=== PATIENT | male | born 1990 | race Caucasian/White ===

== ENCOUNTER 2020-07-07 08:51 | Emergency (ER) | payer OTHER, SELFPAY ==
[2020-07-07 09:02] VITALS: BP 139/90; PULSE 109; TEMP 36.8; O2SAT 98
[2020-07-07 09:23] LABS: Bilirubin Negative (Negative); Blood Negative (Negative); Clarity Clear (Clear); Glucose Negative (Negative); Ketones Negative (Negative); Leukocyte Esterase Negative (Negative); Nitrite Negative (Negative); Urobilinogen 0.2 EU/dL (Up TO 0.2); pH 6.5 (5-8)
--- NOTE | 2020-07-07 09:27 | NUR.NOTE ---
This person is sitting 1:1. Patient is meeting with doctor. Appears to be calm. is present with him, providing support and comfort.
[2020-07-07 09:39] LABS: *AMPHETAMINES SCREEN URINE Negative (Negative); *BARBITURATES SCREEN URINE Negative (Negative); *BENZODIAZEPINES SCREEN URINE Negative (Negative); Cannabinoids THC Positive (Negative); Cocaine Screen,Urine Negative (Negative); METHADONE URINE SCREEN Negative (Negative); OPIATES URINE SCREEN Negative (Negative)
[2020-07-07 09:40] LABS: Tricyclic Antidepressants Negative (Negative)
[2020-07-07 10:48] LABS: Abs Immature Grans 0.02 10^3/uL (0.0-0.06); Absolute Basophil Count 0.02 10^3/uL (0.0-0.2); Absolute Eosinophil Count 0.04 10^3/uL (0.0-0.7); Absolute Lymphocyte Count 1.91 10^3/uL (1.2-3.4); Absolute Monocyte Count 0.54 10^3/uL (0.1-0.8); Basophils % 0.3; Eosinophils % 0.5; HCT 48.1 % (40.0-50.0); HGB 16.7 g/dL (13.5-17.5); Immature Grans % 0.3; Lymphocytes % 25.4; MCH 33.2 pg (27.0-33.0); MCHC 34.7 % (32.0-36.0); MCV 95.6 fL (80-95); MPV 9.4 fL (8.0-11.0); Monocytes % 7.2; Neutrophils % 66.3; Nucleated RBC 0 %; Platelet Count 205 10^3/uL (130-400); RBC 5.03 10^6/uL (4.36-5.78); RDW 11.6 % (11.8-14.1); RDW-SD 40.8 fL; WBC 7.53 10^3/uL (4.4-10.8)
--- NOTE | 2020-07-07 11:04 | W.ED.GENAD ---
Discharge Plan Disposition Patient Disposition: HOME Condition: Good Discharge Details Clinical Impression: Depression, Insomnia Primary Care Provider: Unknown,Unknown ED Provider: Joe Marie Home Meds and New Rx's Prescriptions: No Action No Known Home Meds RF: 0 Discharge Instructions Instructions: Lorazepam (By mouth), Depression (ED) Additional Instructions: At this time you are stable for discharge. Please follow-up closely with the services that you have discussed with your mental health Associates. When you get home please take the Ativan that you have been given as well as a 25 mg Benadryl do your best to get some sleep and rest in a cool dark room. If you notice any worsening of your symptoms, or any new symptoms such as vomiting, diarrhea, fever, chills, shortness of breath, chest pain, numbness, weakness, or fainting , please return immediately to the emergency department for reevaluation. Please follow up with your primary care provider as soon as possible for reassessment and reevaluation. As always, it was a pleasure participating in your medical care today. Medical Decision Making 29-year-old male with no significant past medical history who presents today for evaluation of depression and insomnia. Patient states that he has not been sleeping for the last 3 days at all, his mind seems to race, he states that over the last day or so he has heard occasional voices which tell him that perhaps he should end his life. He has no particular plan though. He does state that he occasionally hears music that is not there as well. He denies any homicidal ideation. His is at bedside. He denies any previous history of schizophrenia, suicidal ideations or significant depression. He does note that his brother a year ago secondary to a mental health crisis and he does feel that this is been weighing on him. He has not seen anyone for counseling or help on an outpatient basis otherwise. He denies any IV or illicit drug use. No other complaints at this time. Physical exam is notably unremarkable, screening work-up is unremarkable aside for slightly elevated potassium. Patient is asymptomatic. No indication for emergent treatment at this time. Mental health has seen and assessed the patient, they feel that he is stable for discharge as well. They will set up resources for him on an outpatient basis. I do feel that at this stage the patient has support as needed for continued outpatient management. We will give a single Ativan pill to be taken at home to help sleep, in conjunction with Benadryl and melatonin. Discussed the importance of close follow-up. Discussed red flags which return. I have extensively reviewed the treatment plan and discharge instructions with the patient and their family. I have addressed all patient concerns at this time. The patient and family was made aware of what symptoms to monitor for that would warrant a return to the emergency department. Discussed the plan with the patient and family, they demonstrate verbal understanding and agreement with our assessment and plan at this time. The documentation in this chart was dictated using [employer] dictation software. Please excuse any dictation errors. HPI General Date/Time Provider Initiated Documentation: 07/07/20 09:11. HPI Narrative: 29-year-old male with no significant past medical history who presents today for evaluation of depression and insomnia. Patient states that he has not been sleeping for the last 3 days at all, his mind seems to race, he states that over the last day or so he has heard occasional voices which tell him that perhaps he should end his life. He has no particular plan though. He does state that he occasionally hears music that is not there as well. He denies any homicidal ideation. His is at bedside. He denies any previous history of schizophrenia, suicidal ideations or significant depression. He does note that his brother a year ago secondary to a mental health crisis and he does feel that this is been weighing on him. He has not seen anyone for counseling or help on an outpatient basis otherwise. He denies any IV or illicit drug use. No other complaints at this time. Related Data Home Medications Medication Instructions Recorded Confirmed Unknown [No Known Home Meds] 07/07/20 07/07/20 Allergies Allergy/AdvReac Type Severity Reaction Status Date / Time No Known Allergies Allergy Unverified 07/07/20 09:10 General Stated Complaint: PsychEval DEBBI: 2 Review of Systems All systems reviewed & are unremarkable except as noted in HPI and below [facility] Social History Smoking/Tobacco Use Status: Current every day Tobacco Type: cigarettes Smoking risk assessment performed?: Yes Alcohol Intake: former Drug use: Daily Substance use type: marijuana Do you feel safe at home: Yes Do you feel safe in your relationship?: Yes Exam Narrative Exam Narrative: 1.Const: Well-nourished, Well-developed, appearing stated age 2.Eyes: PERRL, no conjunctival injection, and symmetrical lids. 3.ENT: Atraumatic external nose and ears. Moist MM. Neck: Symmetric, trachea midline, No thyromegaly. 4.CVS: +S1/S2, No murmurs or gallops. Peripheral pulses 2+ and equal in all extremities. Brisk capillary refill in all extremities. 5.RESP: Unlabored respiratory effort. Clear to auscultation bilaterally. No wheezes rales or rhonchi 6.GI: Soft, Nontender/Nondistended, No hepatosplenomegaly. No guarding or rebound. 7.MSK: Normocephalic/Atraumatic, Extremities w/o deformity or ttp No cyanosis or clubbing, Normal movement of all extremities 8.Skin: Warm, Dry. No rashes or lesions. 9.Neuro: certified medical asst II-XII grossly intact. Sensation grossly intact, no focal neurologic deficits. 10.Psych: (AAO) x3. Appropriate mood and affect Course Vital Signs Vital signs: Vital Signs Temperature 36.8 C 07/07/20 09:02 Pulse 109 H 07/07/20 09:02 Blood Pressure 139/90 07/07/20 09:02 Pulse Oximetry 98 07/07/20 09:02 Temperature 36.8 C 07/07/20 09:02 Temperature Source Temporal Artery Scan 07/07/20 09:02 Pulse 109 H 07/07/20 09:02 Respiratory Effort Non-Labored 07/07/20 09:09 Blood Pressure 139/90 07/07/20 09:02 Blood Pressure Position Sitting 07/07/20 09:02 Pulse Oximetry 98 07/07/20 09:02 Oxygen Delivery Method Room Air 07/07/20 09:02 Oxygen Flow Rate 0 07/07/20 09:02 Pain Level 0 07/07/20 09:02 Lab/Test Results Lab/Test Results: Laboratory Tests Range/Units 07/07/20 07/07/20 07/07/20 09:15 09:15 10:34 WBC (4.4-10.8) 10^3/uL 7.53 RBC (4.36-5.78) 10^6/uL 5.03 Hgb (13.5-17.5) g/dL 16.7 Hct (40.0-50.0) % 48.1 MCV (80-95) fL 95.6 H MCH (27.0-33.0) pg 33.2 H MCHC (32.0-36.0) % 34.7 RDW (11.8-14.1) % 11.6 L Plt Count (130-400) 10^3/uL 205 MPV (8.0-11.0) fL 9.4 Immature Gran % 0.3 Neutrophils % 66.3 Lymphocytes % 25.4 Monocytes % 7.2 Eosinophils % 0.5 Basophils % 0.3 Nucleated RBC % % 0 Absolute Neutrophils (1.2-6.7) 10^3/uL 5.00 Absolute Lymphocytes (1.2-3.4) 10^3/uL 1.91 Absolute Monocytes (0.1-0.8) 10^3/uL 0.54 Absolute Eosinophils (0.0-0.7) 10^3/uL 0.04 Absolute Basophils (0.0-0.2) 10^3/uL 0.02 Urine Color (Yellow) Yellow Urine Clarity (Clear) Clear Urine pH (5-8) 6.5 Ur Specific [place] (1.005-1.025) 1.010 Urine Protein (Negative) mg/dL Negative Urine Ketones (Negative) mg/dL Negative Urine Blood (Negative) Negative Urine Nitrite (Negative) Negative Urine Bilirubin (Negative) Negative Urine Urobilinogen (Up TO 0.2) EU/dL 0.2 Ur Leukocyte Esterase (Negative) Negative Urine Glucose (Negative) mg/dL Negative Urine Opiates Screen (Negative) Negative Urine Methadone Screen (Negative) Negative Ur Barbiturates Screen (Negative) Negative Ur Tricyclics Screen (Negative) Negative Ur Amphetamines Screen (Negative) Negative U Benzodiazepines Scrn (Negative) Negative Urine Cocaine Screen (Negative) Negative Ur THC Screen (Negative) Positive A
[2020-07-07 11:12] LABS: ALT 36 U/L (16-63); AST 19 U/L (15-37); Albumin 4.5 g/dL (3.4-5.0); Alkaline Phosphatase 55 U/L (46-116); Anion Gap 8.8 mmol/L (3-11); BUN 13 mg/dL (7-18); Bilirubin, Total 0.7 mg/dL (0.2-1.0); CO2 30.2 mmol/L (21.0-32.0); CREATININE 0.9 mg/dL (0.70-1.30); Calcium 9.5 mg/dL (8.5-10.1); Chloride 103 mmol/L (98-107); ETHANOL BLOOD 4.6 mg/dL (<3); Glucose 99 mg/dL (74-106); Potassium 5.3 mmol/L (3.5-5.1); Salicylate 3.4 mg/dL (<2.8); Sodium 142 mmol/L (136-145); TSH 1.25 uIU/mL (0.36-3.74); Total Protein 8.1 g/dL (6.4-8.2)
[2020-07-07 11:13] LABS: Acetaminophen < 2 ug/mL (10-30)
[2020-07-07] MEDS: LORazepam 1 MG TAB PO (11:16)
--- NOTE | 2020-07-07 11:23 | PDOC.MHCN ---
Date of service: 07/07/20 Time of Service: 11:00 Mental Health Crisis Note Presenting Issue How did you arrive at the ED and why did you come: Client is brought to the ED by his . Client reports that he has been unable to sleep for the past 4 days. He has had an increase in anxiety and depressive episodes over the past few weeks. Precipitating Factors Client reports SI thoughts but no intention of acting on them. At times, client reports he is having auditory hallucinations over the past few days. Disposition BEHAVIOR: Client is polite an receptive when speaking with this service writer advisor. EYE CONTACT: Client makes eye contact throughout the assessment. MOOD: Client is depressed and feeling anxious. AFFECT: Clients affect is normal. APPETITE: Client reports a poor appetite. SLEEP(trouble falling/staying asleep: Client reports that he has not slept for 4 days. Plan This service writer advisor spoke with Dr. Marie. Client will go home with ativan and benadryl to help him sleep and ease his anxiety. Clients will be with him at home.Client has an upcoming appointment with his PCP, Santino Cohn on July 12. This service writer advisor did [facility] intake paperwork with client. Client is open to receiving services through [facility]. [facility] will contact client tomorrow and will check in on how he is doing. This service writer advisor wrote down the [facility] Emergency number for client to use if additional supports are needed. Signature Clinician's Name/Title: Yenny Kennedy [facility] Emergency Clinician
== END 2020-07-07 11:24 | disposition home or self-care (01) ==
PROVIDERS: Emergency Provider Student in an Organized Health Care Education/Training Program
DX: F32.9 Major depressive disorder, single episode, unspecified (principal); G47.00 Insomnia, unspecified
CPT/HCPCS: 36415; 80053; 80307; 99283; 80320; 80329; 81003; 84443; 85025

== ENCOUNTER 2020-07-08 01:36 | Emergency (ER) | payer OTHER, SELFPAY ==
[2020-07-08 01:42] VITALS: BP 125/78; PULSE 139; RESP 28; O2SAT 96
--- NOTE | 2020-07-08 01:43 | W.ED.GENAD ---
Discharge Plan Disposition Patient Disposition: HOME Condition: Stable Discharge Details Clinical Impression: Insomnia Primary Care Provider: Unknown,Unknown ED Provider: Jose Samuels Home Meds and New Rx's Prescriptions: No Action No Known Home Meds RF: 0 Discharge Instructions Additional Instructions: We have provided you with 2 more Ativan to use at night if needed. Please only take 1 if difficulty at night going to sleep. Follow-up with mental health as well as primary care as planned this week. Return to ED for unsafe feelings, mental status changes, other concerns. Referrals: [facility] [Outside] Santino Cohn [ [facility] STAFF PHYSICIAN] - Discharge Data Discharge Date/Time-TO BE ENTERED AT DEPARTURE: 07/08/20 03:03 Medical Decision Making Reviewed patient's previous visit as well as labs. Nothing of significance. Has follow-up with mental health later today as well as new primary care visit later this week. Given the time of presentation do not feel medicating currently for insomnia appropriate. However, agreed to provide patient with two 1 mg doses of Ativan for use at night if needed until follow-up and plan in place. Medical Records Medical records reviewed: Yes I reviewed the patient's medical records. HPI General Mode of arrival: ambulatory. Date/Time Provider Initiated Documentation: 07/08/20 01:43. Limitations to Documentation: no limitations. Information obtained by: patient, RN notes reviewed and old records reviewed. HPI Narrative: Patient returns to ED with complaint of insomnia. Patient had been seen about 12 hours ago with complaint of anxiety and insomnia. Full mental health screening exam and mental health evaluation was done at that time. Patient was given Ativan which he took when he got home and slept for about 5 hours in the afternoon. Subsequently woke up and has had anxiety, racing thoughts, inability to fall back asleep. On questioning, this is not necessarily a new problem. Sounds like he has had intermittent episodes of this throughout his life. He also has episodes of being down and depressed. Is not on medications. Has not had a psychiatric diagnosis ever made. Uses marijuana on a daily basis as his medication. Related Data Home Medications Medication Instructions Recorded Confirmed Unknown [No Known Home Meds] 07/07/20 07/08/20 Allergies Allergy/AdvReac Type Severity Reaction Status Date / Time No Known Allergies Allergy Unverified 07/08/20 01:53 General DEBBI: 2 Review of Systems Constitutional Constitutional: Denies fever(s) Cardiovascular Cardiovascular: Denies dyspnea Respiratory Respiratory: Denies cough and Denies dyspnea Psychiatric Psychiatric: Reports abnormal sleep pattern, Reports anxiety, Denies homicidal ideation and Denies suicidal ideation [facility] Medical History (Updated 07/08/20 @ 02:46 by Jose Samuels MD) Insomnia Social History Smoking/Tobacco Use Status: Current every day Tobacco Type: cigarettes Smoking risk assessment performed?: Yes Alcohol Intake: former Drug use: Daily Substance use type: marijuana Do you feel safe at home: Yes Do you feel safe in your relationship?: Yes Exam Narrative Exam Narrative: Const: WDWN male in NAD. HEENT: NC/AT. Normal facial exam. Neck: Supple. Trachea midline. Lungs: Normal respiratory effort. Neuro: A+O x 3. Normal speech, mentation, gait. Cranial nerves II - XII grossly intact. No gross motor or sensory deficit. Psych: Calm and cooperative. Good eye contact. Normal speech and thought content. No SI.
[2020-07-08 01:46] VITALS: BP 156/90; PULSE 107; RESP 18; TEMP 37; O2SAT 98
[2020-07-08 01:53] VITALS: RESP 16
[2020-07-08] MEDS: LORazepam 1 MG TAB PO (02:55)
== END 2020-07-08 03:03 | disposition home or self-care (01) ==
PROVIDERS: Emergency Provider Emergency Medicine
DX: G47.00 Insomnia, unspecified (principal)
CPT/HCPCS: 99283

== ENCOUNTER 2020-07-08 19:12 | Observation (INO) | payer OTHER, SELFPAY ==
[2020-07-08 19:18] VITALS: BP 159/95; PULSE 100; RESP 14; TEMP 37.1; O2SAT 98
--- NOTE | 2020-07-08 19:24 | PDOC.CMSAFED ---
- If Service Date Differs Date of service: 07/08/20 Time of Service: 19:24 Care Management Safety Plan Status: Voluntary Chief Complaint: Griffin is a 29 year old male who resides with his in [place], [place]. He presents in the ED for the third time since yesterday. He reports insomnia over the last five days, intense anxiety and depression, and says he is hearing voices. CM will respond to ED to assess patient after patient has been medically cleared and assessed by screener. If screener deems patient meets criteria for psychiatric stabilization CM will facilitate interdepartmental huddle with [facility] screener for safety planning considerations and meet with patient to review [facility] policy and safety plan, establish individual wishes for treatment and maintain patient rights. In the interim; please note safety plan below to guide patient care while awaiting further assessment in the ED. SAFETY PLAN: 1. Will remain on suicide precautions and in paper clothes. 2. Will remain in room under direct supervision of one-on-one staff at all times provided by [employer], SARA, MEDICAL IMAGING DIRECTOR building insulation supervisor. 3. May have paper cups, plates, finger foods as well as a cardboard spoon with which to eat meals. 4. Follow [facility] Management of the Admitted Behavioral Health Patient policy. 5. Personal care: Comfort bath system only at this time. 6. Bathroom privileges: with escort in ED. Available in room without limitation on Med/Surg. 6. No personal belongings at this time. 7. No visitors at this time. 8. Phone contact limited to legal contact at this time. 9. Activities: Crayons, coloring books, television and remote if available, and other activities at RN discretion. 10. Due to VOLUNTARY status, if patient wishes to leave [facility], staff will contact [facility] Crisis Screener ([phone]) and On-Call Instructor [employer] ([phone]) as soon as possible. In the event of elopement, notify [facility] Police ([phone]). If deemed appropriate for inpatient psychiatric care, safety plan will be established with patient, and care team, to adhere to patient goals, identify restrictions based on behavioral status, address nutrition, and determine allowed personal belongings, tools for hygiene and personal care. As well plan will determine level of activity including ambulation, level of supervision, visitors, and determine privileges based on level of acuity, behaviors and level of engagement by patient.
--- NOTE | 2020-07-08 19:33 | ED.GENADUL_ITS ---
Discharge Plan Disposition Patient Disposition: [facility] INPATIENT Condition: Stable Discharge Details Chief Complaint: PsychEval Clinical Impression: History of command hallucinations, Depression with suicidal ideation Primary Care Provider: Santino Cohn ED Provider: Joe Marie Home Meds and New Rx's Prescriptions: No Action multivitamin Capsule 1 cap PO DAILY RF: 0 Medical Decision Making This is a 29-year-old male with no significant past medical history who presents today for suicidal ideations, auditory hallucinations and command hallucinations. Patient was seen yesterday, work-up was relatively unremarkable at that time. He had not slept for the past few days, after medical evaluation mental health saw him and patient family in [facility] felt home was appropriate with sleep aids. Patient did go home and slept for 5 hours with Ativan, unfortunately after this is auditory and command hallucinations worsened he is now hearing things that tell him to kill himself, cannot come to the hospital, and to end his life. He has had no issues like this in the past however he does have family members with it. He denies any homicidal ideations. He denies any IV or illicit drug use. No other complaints at this time. No other modifying factors. Physical exam is unremarkable, patient does want help, and does not feel safe going home. Mental health/[facility] has come and evaluated the patient and agrees on the need for admission. Currently no beds available at outlying facilities. Once laboratory work-up returns we will admit the patient for inpatient admission until transfer is allowed to outlying facility. 8:53 PM Laboratory work-up is unremarkable, patient stable here in the ED. Patient medically cleared. Patient will be admitted while awaiting transfer to outside mental health facility. Patient still here voluntarily. If patient does try to leave he will require EE secondary to his concerning history, however both he and his are on board with voluntary admission at this time. We will give 7.5 mg of Zyprexa and 1 mg of Ativan all p.o. to help the patient rest. Case was discussed with Dr. Oliva, he agrees with assessment and plan. I have extensively reviewed the treatment plan and discharge instructions with the patient. I have addressed all patient concerns at this time. The patient was made aware of what symptoms to monitor for that would warrant a return to the emergency department. Discussed the plan with the patient, they demonstrate verbal understanding and agreement with our assessment and plan at this time. The documentation in this chart was dictated using [employer] dictation software. Please excuse any dictation errors. HPI General Date/Time Provider Initiated Documentation: 07/08/20 19:13 . HPI Narrative: This is a 29-year-old male with no significant past medical history who presents today for suicidal ideations, auditory hallucinations and command hallucinations. Patient was seen yesterday, work-up was relatively unremarkable at that time. He had not slept for the past few days, after medical evaluation mental health saw him and patient family in mental health felt home was appropriate with sleep aids. Patient did go home and slept for 5 hours with Ativan, unfortunately after this is auditory and command hallucinations worsened he is now hearing things that tell him to kill himself, cannot come to the hospital, and to end his life. He has had no issues like this in the past however he does have family members with it. He denies any homicidal ideations. He denies any IV or illicit drug use. No other complaints at this time. No other modifying factors. Related Data Home Medications Medication Instructions Recorded Confirmed multivitamin 1 cap PO DAILY 07/08/20 07/08/20 Allergies Allergy/AdvReac Type Severity Reaction Status Date / Time No Known Allergies Allergy Unverified 07/08/20 19:22 General Stated Complaint: PsychEval DEBBI: 2 Review of Systems All systems reviewed & are unremarkable except as noted in HPI and below [facility] Medical History Insomnia Social History Smoking/Tobacco Use Status: Current every day Tobacco Type: cigarettes Smoking risk assessment performed?: Yes Alcohol Intake: former Drug use: Daily Substance use type: marijuana Do you feel safe at home: Yes Do you feel safe in your relationship?: Yes Additional Social history: feels like he cannot relax at home -hearing voices. Exam Narrative Exam Narrative: 1.Const: Well-nourished, Well-developed, appearing stated age 2.Eyes: PERRL, no conjunctival injection, and symmetrical lids. 3.ENT: Atraumatic external nose and ears. Moist MM. Neck: Symmetric, trachea midline, No thyromegaly. 4.CVS: +S1/S2, No murmurs or gallops. Peripheral pulses 2+ and equal in all extremities. Brisk capillary refill in all extremities. 5.RESP: Unlabored respiratory effort. Clear to auscultation bilaterally. No wheezes rales or rhonchi 6.GI: Soft, Nontender/Nondistended, No hepatosplenomegaly. No guarding or rebound. 7.MSK: Normocephalic/Atraumatic, Extremities w/o deformity or ttp No cyanosis or clubbing, Normal movement of all extremities 8.Skin: Warm, Dry. No rashes or lesions. 9.Neuro: retail operations specialist II-XII grossly intact. Sensation grossly intact, no focal neurologic deficits. 10.Psych: (AAO) x3. Appropriate mood and affect Course Vital Signs Vital signs: Vital Signs Temperature 37.1 C 07/08/20 19:18 Pulse 100 H 07/08/20 19:18 Respiratory Rate 14 07/08/20 19:18 Blood Pressure 159/95 H 07/08/20 19:18 Pulse Oximetry 98 07/08/20 19:18 Temperature 37.1 C 07/08/20 19:18 Pulse 100 H 07/08/20 19:18 Respiratory Rate 14 07/08/20 19:18 Respiratory Effort Non-Labored 07/08/20 19:23 Blood Pressure 159/95 H 07/08/20 19:18 Blood Pressure Position Sitting 07/08/20 19:18 Pulse Oximetry 98 07/08/20 19:18 Oxygen Delivery Method Room Air 07/08/20 19:18 Oxygen Flow Rate 0 07/08/20 19:18 Pain Level 0 07/08/20 19:18
--- NOTE | 2020-07-08 20:07 | PDOC.MHCN ---
Date of service: 07/08/20 Time of Service: 20:08 Mental Health Crisis Note Presenting Issue How did you arrive at the ED and why did you come: Eloy came to the ER with his . Eloy is complaining about command hallucinations. Precipitating Factors Eloy is getting command hallucinations telling him he needs to . Disposition BEHAVIOR: He is cooperative EYE CONTACT: Eye contact is good MOOD: he's very anxious and fearful AFFECT: Anxious APPETITE: Poor appetite SLEEP(trouble falling/staying asleep: He hasn't been sleeping for over a week. Plan Eloy needs to be hospitalized because he has command hallucinations. Eloy had a younger brother suicided last year.
[2020-07-08 20:09] LABS: BE (Venous) 4 mmol/L (-2-3); HCO3 (Venous) 29 mmol/L (23-28); O2 Sat (Venous) 74 %; TCO2 (Venous) 25 mmol/L (24-29); pCO2 (Venous) 45 mmHg (41-51); pH (Venous) 7.41 (7.31-7.41); pO2 (Venous) 37 mmHg
[2020-07-08 20:11] LABS: Abs Immature Grans 0.02 10^3/uL (0.0-0.06); Absolute Basophil Count 0.03 10^3/uL (0.0-0.2); Absolute Eosinophil Count 0.06 10^3/uL (0.0-0.7); Absolute Lymphocyte Count 2.06 10^3/uL (1.2-3.4); Absolute Monocyte Count 0.62 10^3/uL (0.1-0.8); Absolute Neutrophil Count 7.09 10^3/uL (1.2-6.7); Basophils % 0.3; Eosinophils % 0.6; HCT 45.6 % (40.0-50.0); HGB 15.8 g/dL (13.5-17.5); Immature Grans % 0.2; Lymphocytes % 20.9; MCH 32.9 pg (27.0-33.0); MCHC 34.6 % (32.0-36.0); MPV 9.2 fL (8.0-11.0); Monocytes % 6.3; Neutrophils % 71.7; Nucleated RBC 0 %; Platelet Count 215 10^3/uL (130-400); RDW 11.1 % (11.8-14.1); RDW-SD 39.1 fL; WBC 9.88 10^3/uL (4.4-10.8)
[2020-07-08 20:22] LABS: Ammonia 14 umol/L (11-32)
[2020-07-08 20:37] LABS: ALT 35 U/L (16-63); AST 17 U/L (15-37); Albumin 4.4 g/dL (3.4-5.0); Alkaline Phosphatase 51 U/L (46-116); Anion Gap 8.4 mmol/L (3-11); BUN 15 mg/dL (7-18); Bilirubin, Total 0.6 mg/dL (0.2-1.0); CO2 27.6 mmol/L (21.0-32.0); CREATININE 0.8 mg/dL (0.70-1.30); Calcium 9.4 mg/dL (8.5-10.1); Chloride 104 mmol/L (98-107); Glucose 110 mg/dL (74-106); Potassium 4.3 mmol/L (3.5-5.1); Sodium 140 mmol/L (136-145); TSH (W/Ref FT4) 1.05 uIU/mL (0.36-3.74); Total Protein 7.7 g/dL (6.4-8.2)
[2020-07-08 20:40] LABS: Acetaminophen < 2 ug/mL (10-30)
[2020-07-08 20:46] LABS: ETHANOL BLOOD < 3.0 mg/dL (<3)
[2020-07-08 20:59] LABS: *AMPHETAMINES SCREEN URINE Negative (Negative); *BARBITURATES SCREEN URINE Negative (Negative); *BENZODIAZEPINES SCREEN URINE Negative (Negative); Cannabinoids THC Positive (Negative); Cocaine Screen,Urine Negative (Negative); METHADONE URINE SCREEN Negative (Negative); OPIATES URINE SCREEN Negative (Negative)
[2020-07-08 21:00] LABS: Tricyclic Antidepressants Negative (Negative)
[2020-07-08] MEDS: LORazepam 1 MG TAB PO (21:08)
--- NOTE | 2020-07-08 21:15 | NUR.NOTE ---
Nursing Note: Spouse taking patient cell phone, wallet and ring home.
--- NOTE | 2020-07-08 21:36 | W.PM.HP.N ---
Date of service: 07/08/20 Time of Service: 21:36 Assessment and Plan Assessment and plan (1) Psychosis: Status: Acute Assessment and plan: Psychosis. The h/o periodic mood shifts along with the prolonged insomnia might suggest the possibility of bipolar, with then psychotic features, or this may be simply later onset schizophrenia. Does not appear to be a drug induced psychosis. Will monitor on Zyprexa, with prn Ativan, and await disposition to facility. History of Present Illness History of Present Illness Chief Complaint: psychosis Narrative: 29 male with no prior psychiatric history. 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 Returns for ongoing symptoms. In more detail -- reports he has a history of periodic low moods (no manic spells), and then over the past week has been having issues with paranoid thinking and for past five days insomnia ( states he has not slept at all), and then since that time has been having auditory hallucinations which today evolved into suki command hallucinations to hurt himself. Does smoke pot, no other drugs, but did psychedelics back in college. Given Ativan and just now Zyprexa 7.5 PO. Medical w/u negative, UDS + THC only. Admitted pending bed availability at facility. Review of Systems All systems reviewed & are unremarkable except as noted in HPI and below PFSH Medical History Insomnia Social History Smoking/Tobacco Use Status: Current every day Tobacco Type: cigarettes Smoking risk assessment performed?: Yes Alcohol Intake: former Drug use: Daily Substance use type: marijuana Do you feel safe at home: Yes Do you feel safe in your relationship?: Yes Additional Social history: feels like he cannot relax at home -hearing voices. Meds Allergies and Home Medications Allergies Allergy/AdvReac Type Severity Reaction Status Date / Time No Known Allergies Allergy Unverified 07/08/20 19:22 Home Medications Medication Instructions Recorded Confirmed Type multivitamin 1 cap PO DAILY 07/08/20 07/08/20 History Exam Narrative Exam Narrative: 159/95, 100, 37.1, 14, 98% RA. HEENT atraumatic; neck supple; lungs clear; heart RRR; abdomen soft and NT; extremities w/o edema; neuro Ox3, does not appear to be responding to internal stimuli; moves all 4s Results Labs Result diagrams: 07/08/20 20:03 07/08/20 20:03 Labs: Laboratory Results - last 24 hr 07/08/20 07/08/20 07/08/20 20:03 20:03 20:03 WBC RBC Hgb Hct MCV MCH MCHC RDW Plt Count MPV Immature Gran % Neutrophils % Lymphocytes % Monocytes % Eosinophils % Basophils % Nucleated RBC % Absolute Neutrophils Absolute Lymphocytes Absolute Monocytes Absolute Eosinophils Absolute Basophils VBG pH VBG pCO2 VBG pO2 VBG HCO3 VBG Total CO2 VBG O2 Saturation VBG Base Excess Sodium 140 Potassium 4.3 Chloride 104 Carbon Dioxide 27.6 Anion Gap 8.4 BUN 15 Creatinine 0.8 Estimated GFR/1.73 m2 >= 60.00 Glucose 110 H Calcium 9.4 Total Bilirubin 0.6 AST 17 ALT 35 Alkaline Phosphatase 51 Ammonia 14 Total Protein 7.7 Albumin 4.4 TSH 1.05 Salicylates 3.0 Urine Opiates Screen Urine Methadone Screen Acetaminophen < 2 Ur Barbiturates Screen Ur Tricyclics Screen Ur Amphetamines Screen U Benzodiazepines Scrn Urine Cocaine Screen Ur THC Screen Ethyl Alcohol < 3.0 COVID-19 Source 07/08/20 07/08/20 07/08/20 20:03 20:03 20:25 WBC 9.88 RBC 4.80 Hgb 15.8 Hct 45.6 MCV 95.0 MCH 32.9 MCHC 34.6 RDW 11.1 L Plt Count 215 MPV 9.2 Immature Gran % 0.2 Neutrophils % 71.7 Lymphocytes % 20.9 Monocytes % 6.3 Eosinophils % 0.6 Basophils % 0.3 Nucleated RBC % 0 Absolute Neutrophils 7.09 H Absolute Lymphocytes 2.06 Absolute Monocytes 0.62 Absolute Eosinophils 0.06 Absolute Basophils 0.03 VBG pH 7.41 VBG pCO2 45 VBG pO2 37 VBG HCO3 29 H VBG Total CO2 25 VBG O2 Saturation 74 VBG Base Excess 4 H Sodium Potassium Chloride Carbon Dioxide Anion Gap BUN Creatinine Estimated GFR/1.73 m2 Glucose Calcium Total Bilirubin AST ALT Alkaline Phosphatase Ammonia Total Protein Albumin TSH Salicylates Urine Opiates Screen Negative Urine Methadone Screen Negative Acetaminophen Ur Barbiturates Screen Negative Ur Tricyclics Screen Negative Ur Amphetamines Screen Negative U Benzodiazepines Scrn Negative Urine Cocaine Screen Negative Ur THC Screen Positive A Ethyl Alcohol COVID-19 Source 07/08/20 21:05 WBC RBC Hgb Hct MCV MCH MCHC RDW Plt Count MPV Immature Gran % Neutrophils % Lymphocytes % Monocytes % Eosinophils % Basophils % Nucleated RBC % Absolute Neutrophils Absolute Lymphocytes Absolute Monocytes Absolute Eosinophils Absolute Basophils VBG pH VBG pCO2 VBG pO2 VBG HCO3 VBG Total CO2 VBG O2 Saturation VBG Base Excess Sodium Potassium Chloride Carbon Dioxide Anion Gap BUN Creatinine Estimated GFR/1.73 m2 Glucose Calcium Total Bilirubin AST ALT Alkaline Phosphatase Ammonia Total Protein Albumin TSH Salicylates Urine Opiates Screen Urine Methadone Screen Acetaminophen Ur Barbiturates Screen Ur Tricyclics Screen Ur Amphetamines Screen U Benzodiazepines Scrn Urine Cocaine Screen Ur THC Screen Ethyl Alcohol COVID-19 Source Nasopharyx Last Vital Signs Temp 37.1 C 07/08/20 19:18 Pulse 100 H 07/08/20 19:18 Resp 14 07/08/20 19:18 BP 159/95 H 07/08/20 19:18 Pulse Ox 98 07/08/20 19:18 COVID-19 Screening Have you, or household traveled for leisure in last 14 days?: No Had IN PERSON contact w/suspected or confirmed C-19 person: No
[2020-07-08 22:01] LABS: COVID-19 PCR Negative (Negative)
[2020-07-08 22:43] VITALS: BP 136/76; RESP 16; TEMP 36.1; O2SAT 98
[2020-07-09] MEDS: LORazepam 1 MG TAB PO ×2 (01:03→18:26)
[2020-07-09 08:43] VITALS: BP 131/69; PULSE 64
[2020-07-09 08:44] VITALS: BP 131/69; PULSE 73; RESP 18; TEMP 36.3; O2SAT 97
--- NOTE | 2020-07-09 09:50 | MHPN_ITS ---
Date of service: 07/09/20 Time of Service: 09:51 Mental Health Crisis Note Presenting Issue How did you arrive at the ED and why did you come: Pt came to [facility] last night via his with complaints of SI, command hallucinations and poor sleep and appettie. Precipitating Factors Pt reported he is still having auditory hallucinations. He has SI but not intent or specific plans. He denied HI. There is a family history, his brother, by suicide in January 2020 after allegedly having the same presentation as the Pt. Disposition BEHAVIOR: Pt is cooperative and interacting with the assessment. He is laying in his bed and is obsserved rubbing his hair back on his head. He reports thoughts and feelings that his family is not supportive of him and just want him to leave. EYE CONTACT: Eye contact is good. MOOD: Pt's mood appears depressed and anxious. AFFECT: Affect is flat. APPETITE: Pt is still not eating. SLEEP(trouble falling/staying asleep: Pt reported 3-4 hours of sleep last night and he feels better. Plan Pt is wanting to discharge today. This clinician spoke to his who shared the information about his brother's recent by suicide and presentation at the time and this was enough for this clinician to have concerns to hold the Pt if he was not willing to accept treatment. He is however, therefore Pt will remain on voluntary status and placement in a hospital will be sought. It is this clinicians professional belief that the Pt is not appropriate for a crisis bed at this time. If Pt decides that he wants to leave this clinician fully supports an EE be written due to the risk he presents at this time. Signature Clinician's Name/Title: Annie Reed MS, [facility] Emergency Services Clinician
--- NOTE | 2020-07-09 13:03 | PGE_ITS ---
Date of Service Date of service: 07/09/20 Time of Service: 13:03 Assessment and Plan Assessment and plan (1) Depression with suicidal ideation: Status: Acute Assessment and plan: patient may benefit from combination of antipsychotic and antidepressant. He needs CT of head before he can be completely medically cleared for mental health transfer. (2) Insomnia: Status: Acute Assessment and plan: will treat his depression and put him on hypnotic to help him sleep Qualifiers: Insomnia type: due to other mental disorder Qualified Code(s): F51.05 - Insomnia due to other mental disorder; F99 - Mental disorder, not otherwise specified (3) History of command hallucinations: Status: Acute Assessment and plan: as above. Subjective Subjective Interval history since last seen: 29-year-old male with no past medical history of present with suicidal ideations, auditory hallucinations along with sleep deprivation. He has not been sleeping for the last few days. He had seen mental health provider yesterday and was referred to the emergency department.'s been having auditory hallucinations which he hears voices telling him that he is worthless that he should end his life. He has no definitive plan for killing himself. Says he does not want to kill himself but cannot seem to get these voices out of his head. Work-up in the emergency department was unremarkable and he was cleared medically. He was treated with Zyprexa 7.5 mg and Ativan 1 mg both orally last night. He was admitted by the pipe smoker machine operator last night as there were no mental health beds available at hospitals that have psychiatric services. I reviewed his labs and his CBC, CMP and TSH were all normal. However d/t remote head injury and complaints of headaches and now w/ personality changes, I think that a screening contrast enhanced CT head should be done. Exam Narrative Exam Narrative: Thin young white male alert and oriented x 3; quiet but cooperative, rather flat affect lungs are clear heart RRR, soft sytolic ejection murmur grade 1/6 (benign) Abdomen scaphoid Neuro: no focal deficits, no tremors, not currently hallucinating Objective Last Vital Signs Temp 36.3 C L 07/09/20 08:44 Pulse 73 07/09/20 08:44 Resp 18 07/09/20 08:44 BP 131/69 07/09/20 08:44 Pulse Ox 97 07/09/20 08:44 Laboratory Results - last 24 hr 07/08/20 07/08/20 07/08/20 20:03 20:03 20:03 WBC RBC Hgb Hct MCV MCH MCHC RDW Plt Count MPV Immature Gran % Neutrophils % Lymphocytes % Monocytes % Eosinophils % Basophils % Nucleated RBC % Absolute Neutrophils Absolute Lymphocytes Absolute Monocytes Absolute Eosinophils Absolute Basophils VBG pH VBG pCO2 VBG pO2 VBG HCO3 VBG Total CO2 VBG O2 Saturation VBG Base Excess Sodium 140 Potassium 4.3 Chloride 104 Carbon Dioxide 27.6 Anion Gap 8.4 BUN 15 Creatinine 0.8 Estimated GFR/1.73 m2 >= 60.00 Glucose 110 H Calcium 9.4 Total Bilirubin 0.6 AST 17 ALT 35 Alkaline Phosphatase 51 Ammonia 14 Total Protein 7.7 Albumin 4.4 TSH 1.05 Salicylates 3.0 Urine Opiates Screen Urine Methadone Screen Acetaminophen < 2 Ur Barbiturates Screen Ur Tricyclics Screen Ur Amphetamines Screen U Benzodiazepines Scrn Urine Cocaine Screen Ur THC Screen Ethyl Alcohol < 3.0 COVID-19 Source SARS-CoV-2 (PCR) 07/08/20 07/08/20 07/08/20 20:03 20:03 20:25 WBC 9.88 RBC 4.80 Hgb 15.8 Hct 45.6 MCV 95.0 MCH 32.9 MCHC 34.6 RDW 11.1 L Plt Count 215 MPV 9.2 Immature Gran % 0.2 Neutrophils % 71.7 Lymphocytes % 20.9 Monocytes % 6.3 Eosinophils % 0.6 Basophils % 0.3 Nucleated RBC % 0 Absolute Neutrophils 7.09 H Absolute Lymphocytes 2.06 Absolute Monocytes 0.62 Absolute Eosinophils 0.06 Absolute Basophils 0.03 VBG pH 7.41 VBG pCO2 45 VBG pO2 37 VBG HCO3 29 H VBG Total CO2 25 VBG O2 Saturation 74 VBG Base Excess 4 H Sodium Potassium Chloride Carbon Dioxide Anion Gap BUN Creatinine Estimated GFR/1.73 m2 Glucose Calcium Total Bilirubin AST ALT Alkaline Phosphatase Ammonia Total Protein Albumin TSH Salicylates Urine Opiates Screen Negative Urine Methadone Screen Negative Acetaminophen Ur Barbiturates Screen Negative Ur Tricyclics Screen Negative Ur Amphetamines Screen Negative U Benzodiazepines Scrn Negative Urine Cocaine Screen Negative Ur THC Screen Positive A Ethyl Alcohol COVID-19 Source SARS-CoV-2 (PCR) 07/08/20 21:05 WBC RBC Hgb Hct MCV MCH MCHC RDW Plt Count MPV Immature Gran % Neutrophils % Lymphocytes % Monocytes % Eosinophils % Basophils % Nucleated RBC % Absolute Neutrophils Absolute Lymphocytes Absolute Monocytes Absolute Eosinophils Absolute Basophils VBG pH VBG pCO2 VBG pO2 VBG HCO3 VBG Total CO2 VBG O2 Saturation VBG Base Excess Sodium Potassium Chloride Carbon Dioxide Anion Gap BUN Creatinine Estimated GFR/1.73 m2 Glucose Calcium Total Bilirubin AST ALT Alkaline Phosphatase Ammonia Total Protein Albumin TSH Salicylates Urine Opiates Screen Urine Methadone Screen Acetaminophen Ur Barbiturates Screen Ur Tricyclics Screen Ur Amphetamines Screen U Benzodiazepines Scrn Urine Cocaine Screen Ur THC Screen Ethyl Alcohol COVID-19 Source Nasopharyx SARS-CoV-2 (PCR) Negative
--- NOTE | 2020-07-09 14:00 | DI.CT_ITS ---
EXAM: CT HEAD WO/W CLINICAL HISTORY: headaches; auditory hallucinations. TECHNIQUE: Imaging Protocol: Axial computed tomography images with coronal and sagittal reformatted images were created and reviewed. CONTRAST MATERIAL: Intravenous: Omnipaque 350 Contrast volume:100 mL COMPARISON: No exams were available for comparison FINDINGS: Ventricles and Extra axial spaces: Normal in size and morphology for the patient's age. Hemorrhage: None. Cerebral parenchyma: Normal. Enhancement: No suspicious enhancement. [place]: Unremarkable. Midline shift: None. Brainstem/Cerebellum: Normal. Calvarium: Normal. Visualized Paranasal sinuses/Mastoids: Clear. IMPRESSION: Unremarkable CT of the brain. RADIATION DOSE DELIVERED: 1,399.14mGy.cm Total DLP 1,399.14mGy.cm Total DLP DATA REPOSITORY: All CT scans at this facility are submitted to the National Radiology Data Registry (NRDR) Dose Index Registry (DIR) with the [employer] (ACR). RADIATION OPTIMIZATION: All CT scans at this facility use at least one of these dose optimization te chniques: automated exposure control; mA and/or kV adjustment per patient size (includes targeted exa ms where dose is matched to clinical indication); or iterative reconstruction.
[2020-07-09] MEDS: Normal Saline - Diluent 50 ML VIAL IV (14:45)
[2020-07-09] MEDS: OLANZapine 5 MG TAB PO (16:18)
[2020-07-09] MEDS: Sertraline 50 MG TAB PO (16:19)
--- NOTE | 2020-07-09 17:35 | PDOC.CMPRO ---
- If Service Date Differs Date of service: 07/09/20 Time of Service: 17:35 Care Management Progress Note S/O:Griffin was admitted last night with intense anxiety and depression, verbalizing suicidal thoughts. He had presented to the ED 3 times within 2 days with similar complaints. He had been seen by crisis and a safety plan was put in place but he returned within hours. Griffin had not slept in 5 days and was experiencing loss of appetite and demand hallucinations. This morning Griffin verbalized that he wanted to leave the hospital. After discussions with Gianfranco, Griffin' , the [facility] appliance service representative informed Griffin that if he did not agree to seek hospitalization voluntarily, she would seek an emergency evaluation (EE). He agreed to stay voluntarily. This afternoon Gianfranco came to visit with Griffin. ELSI met with her and she shared her concerns for Griffin' safety , particularly in light of the fact that his brother committed suicide in January of 2020. Per Gianfranco, Griffin has had hallucinations (voices) for some time but that in the past few weeks his symptoms have escalated. During Gianfranco's visit with Griffin, he repeatedly asked her to take him come home and when she did not agree, stated that he would leave anyway and walk home. Crisis was called, Griffin was re-evaluated and a physicians certificate was completed. Griffin is currently in Involuntary status. P: Referrals have been sent for involuntary psychiatric hospitalization for Griffin.
--- NOTE | 2020-07-09 18:10 | PDOC.CMSAFE ---
- If Service Date Differs Date of service: 07/09/20 Time of Service: 18:10 Care Management Safety Plan Status: Involuntary Safety plan was revised and changed to Involuntary status following the completion of a physician's certificate emergency exam (EE) at 16:48 pm. Safety plan has been established to meet the needs of the patient, and consideration of the care team, to adhere to patient goals, identify restrictions based on behavioral status, address nutrition, and determine allowed personal belongings, tools for hygiene and personal care. Determine level of activity including ambulation, level of supervision, visitors, and determine privileges based on behaviors and level of engagement by pt. SAFETY PLAN: 1. Will remain on SI/HI precautions. In Paper Clothes 2. Will remain in room under direct supervision of one-on-one staff at all times provided by [employer]; SARA, [employer] box blank machine operator helper. 3. May have paper cups, plates, finger foods as well as a cardboard spoon 4. Follow [facility] Management of the Admitted Behavioral Health Patient policy. 5. Comfort bath system only. 6. No personal belongings 7. Visitors: and parents (if appropriately vaccinated) at nursing's discretion 8. Activities: Crayons, coloring books, word search and puzzle books, television with remote at nursing's discretion. 9. Unlimited bathroom privileges with supervision in room 10. Phone: may make and receive calls from parents and via hospital phone at nursing discretion 11. Due to INVOLUNTARY status, patient is being held at [facility] by the Department of Mental Health ([facility]) until 2nd certification by [facility] Psychiatrist can be performed (within 24 hours). Staff will provide de-escalation support (CPI) as needed. If patient wishes to leave [facility], staff will contact [facility] Crisis Screener ([phone]) and On-Call Kaiako Kohanga Reo ([phone]) as soon as possible. In the event of elopement, notify [place] [employer] ([phone]). Patient is currently involuntarily at [facility]. [facility] Frontline Retail Sales Professional will continue seeking placement. Please contact the Log Brander Kaiako Kohanga Reo ([phone]) for any needed changes to Safety Plan. Safety plan has been provided to interdepartmental care team. Patient will be transported by [facility] at time of discharge.
--- NOTE | 2020-07-09 18:17 | CMSP_ITS ---
- If Service Date Differs Date of service: 07/09/20 Time of Service: 11:45 Care Management Safety Plan Status: Voluntary Chief Complaint: Griffin is a 29 year old male who resides with his in [place], [place]. He was admitted last night with intense anxiety and depression, verbalizing suicidal thoughts. He had presented to the ED 3 times within 2 days with similar complaints. He had been seen by crisis and a safety plan was put in place but he returned within hours. Griffin had not slept in 5 days and was experiencing loss of appetite and demand hallucinations. A safety huddle was held at 11:20 am. In attendance were: Annie [facility] Crisis cl carlton, ELSI Estrella, Marcelina, RN, Lewis, nursing esters and emulsifiers supervisor Safety plan has been established with patient, and care team, to adhere to patient goals, identify restrictions based on behavioral status, address nutrition, and determine allowed personal belongings, tools for hygiene and personal care. Determine level of activity including ambulation, level of supervision, visitors, and determine privileges based on behaviors and level of engagement by pt. SAFETY PLAN: 1. Will remain on SI/HI precautions. In Paper Clothes 2. Will remain in room under direct supervision of one-on-one staff at all times provided by [employer]; SARA, [employer] viscose department worker. 3. May have paper cups, plates, finger foods as well as a cardboard spoon 4. Follow [facility] Management of the Admitted Behavioral Health Patient policy. 5. Comfort bath system only. 6. No personal belongings 7. Visitors: and parents (if appropriately vaccinated) at nursing's discretion 8. Activities: Crayons, coloring books, word search and puzzle books, television with remote at nursing's discretion. 9. Unlimited bathroom privileges with supervision in room 10. Phone: may make and receive calls from parents and via hospital phone at nursing discretion 11. Due to VOLUNTARY status, if patient wishes to leave [facility], staff will contact [facility] Crisis Screener ([phone]) and On-Call [employer] ([phone]) as soon as possible. In the event of elopement, notify [facility] Police ([phone]). If deemed appropriate for inpatient psychiatric care, safety plan will be established with patient, and care team, to adhere to patient goals, identify restrictions based on behavioral status, address nutrition, and determine allowed personal belongings, tools for hygiene and personal care. As well plan will determine level of activity including ambulation, level of supervision, visitors, and determine privileges based on level of acuity, behaviors and level of engagement by patient.
[2020-07-09 18:28] VITALS: BP 140/75; PULSE 80; RESP 20; TEMP 36.4; O2SAT 95
[2020-07-09] MEDS: Zolpidem 6.25 MG TABCR PO (21:21)
[2020-07-10] MEDS: OLANZapine 5 MG TAB PO (08:18)
[2020-07-10] MEDS: Sertraline 50 MG TAB PO (08:18)
--- NOTE | 2020-07-10 10:15 | MHPN_ITS ---
Date of service: 07/10/20 Time of Service: 10:15 Mental Health Crisis Note Presenting Issue How did you arrive at the ED and why did you come: Pt arrived on 07.08.2020ue to an increase in symptoms relating to his mental illness. Precipitating Factors Pt denied SI, HI and auditory hallucinations today. Disposition BEHAVIOR: Pt is able to engage in the conversation but it is minimal and he is minimizing his symptoms. He is denying having any auditory hallucinations at this time. We discussed that he is on EE status and is unable to leave as he asked twice today and what would happen if he did leave. EYE CONTACT: Eye contact is fair. MOOD: Mood appears depressed and overwhlemed. AFFECT: Affect is flat. APPETITE: Pt has not been eating well so this clinician discussed the need for him to eat so he does not have to stay longer than needed. He was offered even just some toast. Pt ended up eating toast and a cheese omelette. SLEEP(trouble falling/staying asleep: Pt reported 3-4 hours of sleep last night but nursing reported more. Plan Pt will remain on EE status. He will be assessed twice daily by [facility] to reevaluate where he is and assess the need for continued involuntary status. No beds available today. Huddle was completed with [facility] team. No changes at this time to the plan. Signature Clinician's Name/Title: Annie Reed MS, [facility] Emergency Services Clinician
[2020-07-10] MEDS: OLANZapine 2.5 MG TAB PO (11:09)
--- NOTE | 2020-07-10 11:13 | W.PM.PROGNOT ---
Date of Service Date of service: 07/10/20 Time of Service: 11:13 Assessment and Plan Assessment and plan (1) Depression with suicidal ideation: Status: Acute Assessment and plan: Continue Zyprexa and sertraline with titration of each. I will start by titrating Zyprexa up to 7.5 mg daily and then wait a couple days then go to 10 mg daily. He was started on sertraline 50 mg daily beginning yesterday we will start titrating it up to 75 mg tomorrow and then to 100 mg the day after. (2) Insomnia: Status: Acute Assessment and plan: will treat his depression and put him on hypnotic to help him sleep. I will keep him on the Ambien CR 6.25 mg nightly. I think getting good quality sleep can be helpful in dealing with his depression. Qualifiers: Insomnia type: due to other mental disorder Qualified Code(s): F51.05 - Insomnia due to other mental disorder; F99 - Mental disorder, not otherwise specified (3) History of command hallucinations: Status: Acute Assessment and plan: as above. Subjective Subjective Interval history since last seen: Patient states he still having racing thoughts and voices. Says it voices or not telling him to kill himself however they are telling him to be better off and that he would be better off . Patient acknowledges that he needs psychiatric help to deal with his mental health issues. He would like to have a counselor to talk with. I explained to him that we are working to try to obtain an inpatient psychiatric beds and he can be transferred to a facility where he can receive both psychiatrist and psychologist to work with him. He is agreeable to the medications and starting tomorrow. Begin him on sertraline 50 mg and Zyprexa 5 mg yesterday. He had a good night sleep last night low-dose Ambien CR. I will titrate the dose of his sertraline to 75 mg starting tomorrow raising Zyprexa to 7.5 mg beginning today. I discussed with him his family situation. He lost a brother to suicide last January. He is still not recovered from that loss. He says it was really hard on his parents are still alive. He has a sister also has depression who has had trouble dealing with the of their brother. Patient himself lives with his who he says is supportive however he feels that he disappoints her in that he has not been able to deal with his depression. Exam Narrative Exam Narrative: Young white male with flat affect who is alert and oriented and answers my questions appropriately. Skin is nondiaphoretic. He is without tremors. He makes good eye contact with me. Objective Last Vital Signs Temp 36.4 C L 07/09/20 18:28 Pulse 80 07/09/20 18:28 Resp 20 07/09/20 18:28 BP 140/75 07/09/20 18:28 Pulse Ox 95 07/09/20 18:28
--- NOTE | 2020-07-10 11:43 | PHA.REVIEW ---
Pharmacy Admission Review - Admission Clinical Review (Last Reviewed 07/08/20 @ 21:43 by Kirt Oliva MD) Psychosis (Acute) Insomnia (Acute) History of command hallucinations (Acute) Depression with suicidal ideation (Acute) No Known Allergies Allergy (Unverified 07/08/20 19:22) Height 6 ft 2 in Weight 91.5 kg - Renal Dosing Renal Dosing: BUN 15 mg/dL (7-18) 07/08/20 20:03 Creatinine 0.8 mg/dL (0.70-1.30) 07/08/20 20:03 Medications needing adjustments: Reviewed (Crcl ~155 mL/min current meds okay) - Anticoagulation Anticoagulation: Hgb 15.8 g/dL (13.5-17.5) 07/08/20 20:03 Hct 45.6 % (40.0-50.0) 07/08/20 20:03 Plt Count 215 10^3/uL (130-400) 07/08/20 20:03 Creatinine 0.8 mg/dL (0.70-1.30) 07/08/20 20:03 DVT Prohphylaxis: N/A - Opiate Usage Evaluate Pain Scale/Pains Meds: N/A - Relevant Labs Sodium 140 mmol/L (136-145) 07/08/20 20:03 Potassium 4.3 mmol/L (3.5-5.1) 07/08/20 20:03 Chloride 104 mmol/L (98-107) 07/08/20 20:03 Electrolytes, C-Reactive P, ESR: Reviewed - DM Control DM Control: Glucose 110 mg/dL (74-106) H 07/08/20 20:03 Insulin Dosing: N/A - Heart Failure/MO EF%, DELIA's, B-Blockers, Diuretics: N/A - BP Control If elevated: Reviewed (No BP yet today but was within normal limits yesterday.) - Qtc Review If Elevated: N/A - IV to PO Switch IV Medications: Reviewed - Home Meds Home Med List reviewed: Reviewed Relevent Home Meds Not ordered & why?: multivitamin - Current meds Current Medication Order Review: Reviewed - Comments Comments/Follow Ups: Continue to watch VS, labs and for med changes.
--- NOTE | 2020-07-10 12:08 | PDOC.CMPRO ---
- If Service Date Differs Date of service: 07/10/20 Time of Service: 12:08 Care Management Progress Note S/O:Griffin was sitting up in bed when CM met with him. He appeared much more alert and engaged than yesterday. Griffin stated that he slept last night and feels that the medications that he has been given are helping him to feel less stressed. He expressed appreciation for the opportunity to speak to the psychiatrist during the second certification last night as well. He shared that he found it helpful and hopes that an inpatient stay in a psychiatric facility may also be beneficial. Gianfranco came to visit Griffin this afternoon and it appeared that the interaction went well. A: Griffin is a 29 year old man admitted on with anxiety, depression and SI P: Referrals have been sent for involuntary psychiatric hospitalization for Griffin.
--- NOTE | 2020-07-10 12:09 | PDOC.CMSAFE ---
- If Service Date Differs Date of service: 07/10/20 Time of Service: 12:09 Care Management Safety Plan Status: Involuntary A safety huddle was held at 10:30 am. Attendance: GEO Valencia, ELSI Estrella Megan RN, Ct, Nursing supervisor lending activities Safety plan has been established to meet the needs of the patient, and consideration of the care team, to adhere to patient goals, identify restrictions based on behavioral status, address nutrition, and determine allowed personal belongings, tools for hygiene and personal care. Determine level of activity including ambulation, level of supervision, visitors, and determine privileges based on behaviors and level of engagement by pt. SAFETY PLAN: 1. Will remain on SI/HI precautions. In Paper Clothes 2. Will remain in room under direct supervision of one-on-one staff at all times provided by [employer]; SARA, MUNDO workers compensation claims assistant. 3. May have paper cups, plates, finger foods as well as a cardboard spoon 4. Follow [facility] Management of the Admitted Behavioral Health Patient policy. 5. Comfort bath system only. 6. No personal belongings 7. Visitors: and parents (if appropriately vaccinated) at nursing's discretion 8. Activities: Crayons, coloring books, word search and puzzle books, television with remote at nursing's discretion. 9. Unlimited bathroom privileges with supervision in room 10. Phone: may make and receive calls from parents and via hospital phone at nursing discretion 11. Due to INVOLUNTARY status, patient is being held at [facility] by the Department of Mental Health ([facility]) until 2nd certification by [facility] Psychiatrist can be performed (within 24 hours). Staff will provide de-escalation support (CPI) as needed. If patient wishes to leave [facility], staff will contact [facility] Crisis Screener ([phone]) and On-Call Flat Spring Assembler ([phone]) as soon as possible. In the event of elopement, notify [place] [employer] ([phone]). Patient is currently involuntarily at [facility]. [facility] Frontline Woodwind Instrument Repairer will continue seeking placement. Please contact the Tile Classifier Flat Spring Assembler ([phone]) for any needed changes to Safety Plan. Safety plan has been provided to interdepartmental care team. Patient will be transported by [facility] at time of discharge. cc:
[2020-07-10 16:00] VITALS: BP 125/76; PULSE 95; RESP 20; TEMP 37; O2SAT 97
[2020-07-10] MEDS: LORazepam 1 MG TAB PO ×2 (16:10→16:29)
[2020-07-10] MEDS: Zolpidem 6.25 MG TABCR PO (21:02)
[2020-07-11] MEDS: Sertraline 50 MG TAB 75 MG PO (08:13)
--- NOTE | 2020-07-11 08:48 | NUR.NOTE ---
Spoke with Annie from [facility], she feels comfortable with the idea that if the patient would like to shower with supervision, he should be able to do so. This automotive service writer anticipates, changes to be made to Behavioral Health plan soon
--- NOTE | 2020-07-11 09:30 | W.PM.PROGNOT ---
Date of Service Date of service: 07/11/20 Time of Service: 09:30 Assessment and Plan Assessment and plan (1) Depression with suicidal ideation: Status: Acute Assessment and plan: cont. titration of his Zyprexa and Sertraline. I will increase his sertraline to 100 mg daily beginning today and his Zyprexa to 10 mg daily beginning tomorrow. (2) Insomnia: Status: Acute Assessment and plan: cont. Ambien CR as this seems to be helping his insomnia. Qualifiers: Insomnia type: due to other mental disorder Qualified Code(s): F51.05 - Insomnia due to other mental disorder; F99 - Mental disorder, not otherwise specified (3) History of command hallucinations: Status: Acute Assessment and plan: as above. Subjective Subjective Interval history since last seen: Patient is doing much better. No SI and no voices just still some racing thoughts but denies any SI. He is more hooeful and wants help w/ his depression and is looking forward to getting counseling. I explained to him that Annie LOYOLA [facility] and there is a chance that he will be transferred today. Exam Narrative Exam Narrative: Patient was napping but awoke easily. He seems calm, forward thinking and positive. No tremors. He makes good eye contact. Objective Last Vital Signs Temp 37.0 C 07/10/20 16:00 Pulse 95 H 07/10/20 16:00 Resp 20 07/10/20 16:00 BP 125/76 07/10/20 16:00 Pulse Ox 97 07/10/20 16:00
[2020-07-11] MEDS: Sertraline 25 MG TAB PO (09:49)
--- NOTE | 2020-07-11 12:37 | PDOC.CMSAFE ---
- If Service Date Differs Date of service: 07/11/20 Time of Service: 12:37 Care Management Safety Plan Status: Involuntary A decentralized safety huddle was held at 12:30 pm. Attendance: GEO Valencia, ELSI Estrella Megan, RN, Ct, Nursing line supervisor Safety plan has been established to meet the needs of the patient, and consideration of the care team, to adhere to patient goals, identify restrictions based on behavioral status, address nutrition, and determine allowed personal belongings, tools for hygiene and personal care. Determine level of activity including ambulation, level of supervision, visitors, and determine privileges based on behaviors and level of engagement by pt. SAFETY PLAN: 1. Will remain on SI/HI precautions. In Paper Clothes 2. Will remain in room under direct supervision of one-on-one staff at all times provided by [employer]; SARA, MUNDO food preparation worker. 3. May have paper cups, plates, finger foods as well as a cardboard spoon 4. Follow [facility] Management of the Admitted Behavioral Health Patient policy. 5. May shower with supervision. 6. No personal belongings 7. Visitors: and parents (if appropriately vaccinated) at nursing's discretion 8. Activities: Crayons, coloring books, word search and puzzle books, television with remote at nursing's discretion. 9. Unlimited bathroom privileges with supervision in room 10. Phone: may make and receive calls from parents and via hospital phone at nursing discretion 11. Due to INVOLUNTARY status, patient is being held at [facility] by the Department of Mental Health ([facility]) until 2nd certification by [facility] Psychiatrist can be performed (within 24 hours). Staff will provide de-escalation support (CPI) as needed. If patient wishes to leave [facility], staff will contact [facility] Crisis Screener ([phone]) and On-Call Research Chemist ([phone]) as soon as possible. In the event of elopement, notify [place] [employer] ([phone]). Patient is currently involuntarily at [facility]. [facility] Frontline Stocking And Box Shop Supervisor will continue seeking placement. Please contact the Triage Registered Nurse Research Chemist ([phone]) for any needed changes to Safety Plan. Safety plan has been provided to interdepartmental care team. Patient will be transported by [facility] at time of discharge. cc:
--- NOTE | 2020-07-11 12:40 | PDOC.CMPRO ---
- If Service Date Differs Date of service: 07/11/20 Time of Service: 12:40 Care Management Progress Note S/O:Griffin was sitting up in bed when CM met with him. He appeared much more alert and engaged than yesterday. Griffin stated that he slept really well last night and feels rested for the first time in a while. He also stated that the fear and confusion he has been experiencing has diminished. Griffin expressed gratitude for the care he is receiving and for the ability to talk with staff. He also shared that he is hopeful about the likelihood that hospitalization will be helpful. [facility] has been interested in offering a bed but is unwilling to do so until Griffin can produce proof of insurance. His Gianfranco has been working on this and has paid a premium for him to be covered by [facility]. The effective date of the policy is June 13, 2020. Unfortunately, Griffin and Gianfranco do not yet have access to the policy numbers that would allow [facility] to accept him today. A: Griffin is a 29 year old man admitted on with anxiety, depression and SI P: Referrals have been sent for involuntary psychiatric hospitalization for Griffin. Late in the day ELSI received word that his insurance was approved and Griffin will be transferred in the morning by .
[2020-07-11 22:00] VITALS: BP 130/72; PULSE 78; RESP 16; TEMP 36.1; O2SAT 96
[2020-07-11] MEDS: Zolpidem 6.25 MG TABCR PO (22:06)
--- NOTE | 2020-07-11 23:44 | DSE_ITS ---
Date of service: 07/11/20 Time of Service: 23:44 DS: Diagnosis Discharge Diagnosis (1) Depression with suicidal ideation: Status: Acute (2) Insomnia: Status: Acute (3) History of command hallucinations: Status: Acute Discharge Plan [facility]position [facility] Condition: Stable Discharge Details Reason For Visit: PSYCHOSIS, SUICIDAL IDEATION Admit Date/Time: 07/10/20 11:20 Admit Provider: Kirt Oliva Attending Provider: Kirt Oliva Primary Care Provider: Santino Cohn Home Meds and New Rx's Prescriptions: No Action multivitamin Capsule 1 cap PO DAILY RF: 0 DS: Data Vitals/I&O Vitals and I&O: Vital Signs Temperature 37.0 C 07/10/20 16:00 Temperature Source Temporal Artery Scan 07/10/20 16:00 Pulse 95 H 07/10/20 16:00 Pulse Rhythm Regular 07/11/20 21:01 Respiratory Rate 20 07/10/20 16:00 Respiratory Effort 07/11/20 21:01 Respiratory Depth Normal 07/11/20 21:01 Respiratory Pattern Normal 07/11/20 21:01 Blood Pressure 125/76 07/10/20 16:00 Blood Pressure Mean 92 07/10/20 16:00 Blood Pressure Position Supine 07/10/20 16:00 Pulse Oximetry 97 07/10/20 16:00 Oxygen Delivery Method Room Air 07/10/20 16:00 Oxygen Flow Rate 0 07/10/20 16:00 Pain Level 0 07/10/20 16:00 Intake & Output 07/10/20 07/11/20 07/11/20 23:59 11:59 23:59 Intake Total 960 / 1560 480 / 480 Balance 960 / 1560 480 / 480 Intake: Oral 960 / 1560 480 / 480 Other: Urine Appearance Clear Clear Urine Odor None Comment voiding independently in BR with supervision up to comode independently [facility] Medical History Insomnia Social History Smoking/Tobacco Use Status: Current every day Tobacco Type: cigarettes Smoking risk assessment performed?: Yes Alcohol Intake: former Drug use: Daily Substance use type: marijuana Do you feel safe at home: Yes Do you feel safe in your relationship?: Yes Additional Social history: feels like he cannot relax at home -hearing voices.
--- NOTE | 2020-07-12 02:44 | NUR.NOTE ---
Nursing Note: At 22:30H on 07/11/2020, Nursing Manager Play Aye handed over a black bag with patient's clothes which was dropped by his .
[2020-07-12 05:40] VITALS: BP 125/70; PULSE 74; RESP 18; TEMP 36.3; O2SAT 97
[2020-07-12] MEDS: OLANZapine 10 MG TAB PO (07:38)
[2020-07-12] MEDS: LORazepam 1 MG TAB PO (07:39)
[2020-07-12] MEDS: Sertraline 50 MG TAB 100 MG PO (07:39)
--- NOTE | 2020-07-12 08:01 | NUR.NOTE ---
PT in regular clothes at this time for transfer to [facility]. RN aware. Belongings outside of room also ready for transfer. Nursing Note:
--- NOTE | 2020-07-12 10:36 | CMDISCH_ITS ---
- If Service Date Differs Date of service: 07/12/20 Time of Service: 10:37 LACE Index Scoring Tool - Questions: Length of Stay (in days): 2 Acuity (Admit via E.D.?): Yes E.D. Visits: 3 - Answers: Total Score: 8 Risk of Readmission: Low Risk Care Management Discharge Reason for Hospitalization: Depression Discharge Plan: Griffin will be transferred to [place] for Involuntary psychiatric treatment. He will be transported by [facility]. Patient/Family Education Needs: Expectations, limitations, follow up plan
== END 2020-07-12 08:34 | disposition short-term general hospital (02) | DRG 885 ==
LOC: ER 21:59 → ICU 22:36
PROVIDERS: Admitting Provider General Practice; Emergency Provider Student in an Organized Health Care Education/Training Program; PCP Physician Assistant; Visit Provider General Practice
DX: F29 Unspecified psychosis not due to a substance or known physiological condition (principal); R44.0 Auditory hallucinations; R45.851 Suicidal ideations; F17.210 Nicotine dependence, cigarettes, uncomplicated; Z20.822 Contact with and (suspected) exposure to COVID-19; F32.9 Major depressive disorder, single episode, unspecified; F51.05 Insomnia due to other mental disorder
CPT/HCPCS: 36415; 80053; 80307; 82805; 87635; 99285; 70470; 80320; 80329; 82140; 84443; 85025; 99218; 99225; 99231

== ENCOUNTER 2024-02-25 01:13 | Outpatient (CLI) | payer BC, SELFPAY ==
[2024-02-25 10:42] LABS: Hemoglobin A1C 5.5 % (<5.7)
[2024-02-25 10:43] LABS: ALT 38 U/L (16-63); AST 25 U/L (15-37); Alkaline Phosphatase 52 U/L (46-116); Anion Gap 7.8 mmol/L (3-11); BUN 17 mg/dL (7-18); Bilirubin, Total 0.88 mg/dL (0.2-1.0); CO2 28.2 mmol/L (21.0-32.0); CREATININE 0.8 mg/dL (0.70-1.30); Calcium 9.4 mg/dL (8.5-10.1); Calculated LDL 101 mg/dL (<100); Chloride 106 mmol/L (98-107); Cholesterol 180 mg/dL (<200); Estimated GFR 118.36 (mL/min/1.73m2); Glucose 97 mg/dL (74-106); HDL Cholesterol 73 mg/dL (40-60); Potassium 4.3 mmol/L (3.5-5.1); Sodium 142 mmol/L (136-145); Total Protein 7.4 g/dL (6.4-8.2); Triglyceride 33 mg/dL (<150)
== END 2024-02-25 01:14 | disposition home or self-care (01) ==
LOC: LBO 01:13
PROVIDERS: PCP Physician Assistant; Visit Provider Physician Assistant
DX: Z13.1 Encounter for screening for diabetes mellitus (principal); Z13.220 Encounter for screening for lipoid disorders; R03.0 Elevated blood-pressure reading, without diagnosis of hypertension
CPT/HCPCS: 36415; 80053; 80061; 83036